=== PATIENT | female | born 1980 | race Caucasian/White ===

== ENCOUNTER 2021-03-22 19:38 | Emergency (ER) | payer OTHER ==
[2021-03-22 19:49] VITALS: BP 128/82; PULSE 84; TEMP 98.2; BMI 36.4
== END 2021-03-22 20:21 | disposition home or self-care (01) ==
LOC: FER 19:38
DX: S61.211A Laceration without foreign body of left index finger without damage to nail, initial encounter (principal)
CPT/HCPCS: 99281-25